=== PATIENT | female | born 1985 | race Caucasian/White ===

== ENCOUNTER 2020-07-30 17:08 | Emergency (ER) | payer MEDICAID ==
[2020-07-30] MEDS ORDERED: Morphine 4 MG/ML VIAL IVPUSH ONE (17:32)
[2020-07-30] MEDS ORDERED: Ondansetron 4 MG/2 ML SDV IVPUSH ONE (17:32)
[2020-07-30] MEDS ORDERED: Sodium Chloride 0.9% 1,000 ML IV SCH (17:45)
--- NOTE | 2020-07-30 17:59 | EDM.PDOC ---
ED HPI GENERAL MEDICAL PROBLEM - General Chief Complaint: General Stated Complaint: POST OP PAIN Time Seen by Provider: 07/30/20 17:30 Source of Information: Reports: Patient History Limitations: Reports: No Limitations - History of Present Illness INITIAL COMMENTS - FREE TEXT/NARRATIVE: Patient is a 35 y/o female who presents with diffuse abdominal pain and nausea/vomiting since Sunday. Dr Canseco ([facility]) did a lap band surgery Sunday and patient hasn't been able to keep anything down ever since. Last bowel movement was before the surgery. Patient denies bloody or dark stools. Patient tried calling surgeon's office, but he will not be back until Sunday. Abdominal Pain Score (Numeric/FACES): 9 - Related Data Allergies Allergy/AdvReac Type Severity Reaction Status Date / Time No Known Allergies Allergy Verified 07/30/20 18:24 Past Medical History HEENT History: Reports: Impaired Vision TEST PILOT History: Reports: Polycystic Ovaries Psychiatric History: Reports: Anxiety, Depression ED ROS GENERAL - Review of Systems Review Of Systems: See Below Constitutional: Reports: No Symptoms HEENT: Reports: No Symptoms Respiratory: Reports: No Symptoms Cardiovascular: Reports: No Symptoms GI/Abdominal: Reports: Abdominal Pain, Nausea, Vomiting : Reports: No Symptoms Musculoskeletal: Reports: No Symptoms Skin: Reports: No Symptoms Neurological: Reports: No Symptoms ED EXAM, GENERAL - Physical Exam Exam: See Below Exam Limited By: No Limitations General Appearance: Alert, Anxious Head: Atraumatic, Normocephalic Respiratory/Chest: No Respiratory Distress, Lungs Clear, Normal Breath Sounds, No Accessory Muscle Use, Chest Non-Tender Cardiovascular: Normal Peripheral Pulses, Regular Rate, Rhythm, No Edema, No Murmur GI/Abdominal: Soft, No Distention, Guarding, Rebound, Tender Course - Vital Signs Text/Narrative:: All labs unremarkable except for leukocytosis. CT ABD/PEL: 1. post gastric banding procedure 2. gastric pouch mildly dilated. hiatal hernia containing gastric pouch 3. small 3.7 x 2.5 cm pocket of fluid and air in the left anterior abdominal wall soft tissues, most likely a small post-op fluid collection 4. no significant acute abnormality Patient able to tolerate fluids after morphine, 1 L NS, and zofran. Last Recorded V/S: Last Vital Signs Temp 36.4 C 07/30/20 17:15 Pulse 98 07/30/20 17:15 Resp 16 07/30/20 17:15 BP 139/81 07/30/20 17:15 Pulse Ox 98 07/30/20 17:15 - Orders/Labs/Meds Orders: Active Orders 24 hr Category Date Time Status Abdomen Pelvis wo Cont [CT] Stat Exams 07/30/20 18:05 Taken UA RFX [place] AND CULT IF INDIC [URIN] Stat Lab 07/30/20 17:31 Ordered Urine [HCG QUALITATIVE,URINE] [URCHEM] Stat Lab 07/30/20 17:32 Ordered Sodium Chloride 0.9% [Normal Saline] 1,000 ml Med 07/30/20 17:45 Active IV ASDIRECTED Medication Orders Sodium Chloride (Normal Saline) 1,000 mls @ 1,000 mls/hr IV ASDIRECTED AIDAN Last Admin: 07/30/20 18:18 Dose: 1,000 mls/hr Documented by: BERNABE Labs: Laboratory Tests 07/30/20 07/30/20 07/30/20 Range/Units 17:40 17:40 17:40 WBC 12.5 H (4.0-11.0) K/uL RBC 5.38 (3.80-5.80) M/uL Hgb 14.5 (11.5-16.5) g/dL Hct 43.8 (37.0-47.0) % MCV 81 (76-96) fL MCH 27.0 (27.0-32.0) pg MCHC 33.1 (31.0-35.0) g/dL RDW 13.5 (11.0-16.0) % Plt Count 268 (150-500) K/uL MPV 10.7 H (6.0-10.0) fL Neut % (Auto) 72.7 H (45.0-70.0) % Lymph % (Auto) 20.4 (20.0-40.0) % [place] % (Auto) 6.5 (3.0-10.0) % Eos % (Auto) 0.2 L (1.0-5.0) % Baso % (Auto) 0.2 (0.0-0.5) % Neut # (Auto) 9.12 H (2.00-7.50) K/uL Lymph # (Auto) 2.55 (1.50-4.00) K/uL [place] # (Auto) 0.81 H (0.20-0.80) K/uL Eos # (Auto) 0.02 L (0.04-0.40) K/uL Baso # (Auto) 0.03 (0.02-0.10) K/uL Sodium 140 (136-145) mmol/L Potassium 3.7 (3.5-5.1) mmol/L Chloride 100 (98-107) mmol/L Carbon Dioxide 25.5 (21.0-32.0) mmol/L Anion Gap 18.2 H (5.0-15.0) mmol/L BUN 15 D (8-26) mg/dL Creatinine 0.92 (0.55-1.02) mg/dL Est Cr Clr Drug Dosing 81.42 mL/min Estimated GFR (MDRD) > 60 (>60) MLS/MIN BUN/Creatinine Ratio 16.3 (6-25) Glucose 128 H (74-100) mg/dL Lactic Acid 1.1 (0.4-2.0) mmol/L Calcium 10.0 (8.5-10.1) mg/dL Total Bilirubin 0.5 (0.0-1.0) mg/dL AST 52 H (15-37) U/L ALT 75 (12-78) U/L Alkaline Phosphatase 91 (46-116) U/L Total Protein 8.9 H (6.4-8.2) g/dL Albumin 3.9 (3.4-5.0) g/dL Globulin 5.0 H (2.2-4.2) g/dL Albumin/Globulin Ratio 0.8 (0.8-2.0) Lipase 113 (73-393) U/L Meds: Medications Generic Name Dose Route Start Last Admin Trade Name Freq PRN Reason Stop Dose Admin Sodium Chloride 1,000 mls @ 1,000 mls/hr 07/30/20 17:45 07/30/20 18:18 Normal Saline IV 1,000 mls/hr ASDIRECTED AIDAN Administration Discontinued Medications Generic Name Dose Route Start Last Admin Trade Name Freq PRN Reason Stop Dose Admin Morphine Sulfate 4 mg 07/30/20 17:32 07/30/20 17:51 Morphine IVPUSH 07/30/20 17:33 4 mg ONETIME ONE Administration Ondansetron HCl 4 mg 07/30/20 17:32 07/30/20 17:51 Zofran IVPUSH 07/30/20 17:33 4 mg ONETIME ONE Administration Departure - Departure Time of Disposition: 19:45 Disposition: Home, Self-Care 01 Condition: Good Clinical Impression: Post-op pain Vomiting Qualifiers: Vomiting type: bilious vomiting Nausea presence: with nausea Qualified Code(s): R11.14 - Bilious vomiting - Discharge Information *PRESCRIPTION DRUG MONITORING PROGRAM REVIEWED*: Not Applicable *COPY OF PRESCRIPTION DRUG MONITORING REPORT IN PATIENT NEELAM: Not Applicable Instructions: Nausea and Vomiting, Adult Forms: ED Department Discharge Additional Instructions: Small sips of water and juice; small bits of bland food; no soda or dairy. Take nausea and pain meds as directed. Follow up as scheduled next sunday with surgery. Return to the ED for fever >102, unable to tolerate fluids, difficulty breathing/swallowing, and/or persistent/worsening symptoms. Sepsis Event Note (ED) - Focused Exam Vital Signs: Vital Signs Temp Pulse Resp BP Pulse Ox 07/30/20 17:15 36.4 C 98 16 139/81 98 - My Orders Last 24 Hours: My Active Orders 07/30/20 17:31 UA RFX [place] AND CULT IF INDIC [URIN] Stat 07/30/20 17:32 Urine [HCG QUALITATIVE,URINE] [URCHEM] Stat 07/30/20 17:45 Sodium Chloride 0.9% [Normal Saline] 1,000 ml IV ASDIRECTED 07/30/20 18:05 Abdomen Pelvis wo Cont [CT] Stat - Assessment/Plan Last 24 Hours: My Active Orders 07/30/20 17:31 UA RFX [place] AND CULT IF INDIC [URIN] Stat 07/30/20 17:32 Urine [HCG QUALITATIVE,URINE] [URCHEM] Stat 07/30/20 17:45 Sodium Chloride 0.9% [Normal Saline] 1,000 ml IV ASDIRECTED 07/30/20 18:05 Abdomen Pelvis wo Cont [CT] Stat Plan: Zofran 4 mg ODT PO every 4-6 hours prn for nausea
[2020-07-30] MEDS ORDERED: Ondansetron 4 MG Tab.DIS ONE (18:25)
--- NOTE | 2020-08-01 12:03 | CT ---
DATE OF SERVICE: 07/30/2020 CLINICAL DATA: Pain Unenhanced abdomen and pelvic CT: Multi slice acquisition through the abdomen and pelvis without IV or oral contrast was performed. No priors. The lung bases are clear. The heart size is normal. There is a moderate size hiatal hernia. The patient is status post gastric banding. The gastric pouch is within the hiatal hernia. There is diffuse fatty infiltration of the liver. No focal hepatic lesions. The gallbladder appears normal. No calcified gallstones. No pericholecystic fluid. The spleen appears normal. The pancreas appears normal. The right and left adrenals appear normal. The right and left kidneys appear normal. No nephrocalcinosis or nephrolithiasis. No hydronephrosis or hydroureter. The bladder is partially fluid filled. It appears normal. There are small low-density lesions in both ovaries consistent with small ovarian cysts. No evidence of appendicitis. No free air. No free fluid. No dilated loops of bowel. No adenopathy. NO aortic aneurysm. There is a small gas and fluid collection within the anterior abdomen wall on the left anterior to the left rectus abdominus muscle adjacent to the gastric band port tube. It measures 3.7 cm in its maximum dimension. It is probably related to the prior surgery. I cannot exclude an infectious process. No other significant findings. MTDD
== END 2020-07-30 20:01 | disposition home or self-care (01) ==
LOC: LB.ED 17:08
DX: G89.18 Other acute postprocedural pain (principal); R11.14 Bilious vomiting
CPT/HCPCS: 36415; 74176; 80053; 83605; 83690; 85025; 96374; 96375; 99284-25; A9270-GY; J2270; J2405; J7030

== ENCOUNTER 2021-01-03 14:25 | Emergency (ER) | payer MEDICAID ==
[2021-01-03] MEDS ORDERED: Orphenadrine 60 MG/2 ML Inj IM ONE (14:53)
[2021-01-03] MEDS ORDERED: Acetaminophen/Codeine 300-30 MG Tab PO ONE (14:54)
[2021-01-03] MEDS ORDERED: Acetaminophen/Codeine 300-30 MG Tab ONE (15:22)
--- NOTE | 2021-01-03 15:37 | EDM.PDOC ---
ED HPI GENERAL MEDICAL PROBLEM - General Chief Complaint: Back Pain or Injury Stated Complaint: BACK PAIN Time Seen by Provider: 01/03/21 14:30 Source of Information: Reports: Patient History Limitations: Reports: No Limitations - History of Present Illness INITIAL COMMENTS - FREE TEXT/NARRATIVE: Ms. Abbasi came in today for low back pain not attributed to any acute injury. ROM is limited in all planes. She is limping and leaning left. Symptoms for 6 days. She initially tried Ibuprofen 3 days ago with no improvement. Pain is 8/10. She has a PMH of lap band surgery 14 years ago. No chronic illnesses noted. Normal HRR, lungs are CTA, Abd is soft and non tender. No fever. No N, V, or D. Onset: Gradual Onset Date: 12/29/20 Duration: Day(s):, Constant Location: Reports: Back Quality: Reports: Ache, Dull Severity: Moderate Improves with: Reports: None Worsens with: Reports: None Context: Reports: Lifting Associated Symptoms: Reports: No Other Symptoms Treatments BACK OFFICE MEDICAL ASSISTANT: Reports: Acetaminophen Bilateral Lower Back Pain Score (Numeric/FACES): 8 - Related Data Allergies Allergy/AdvReac Type Severity Reaction Status Date / Time No Known Allergies Allergy Verified 01/03/21 14:43 Home Meds: Home Meds NK [No Known Home Meds] 01/03/21 [History] Past Medical History HEENT History: Reports: Impaired Vision Gastrointestinal History: Reports: Other (See Below) Other Gastrointestinal History: Lactose Intolerant Genitourinary History: Reports: Other (See Below) Other Genitourinary History: Pre-diabetic 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: 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 BED ASSEMBLER History: Insulin Resistant Polycystic Ovarian Syndrome Psychiatric History: Reports: Anxiety, Depression Endocrine/Metabolic History: Reports: Other (See Below) Other Endocrine/Metabolic History: Prediabetic - Past Surgical History GI Surgical History: Reports: Bariatric Procedure Social & Family History - Caffeine Use Caffeine Use: Reports: Coffee, Soda - Recreational Drug Use Recreational Drug Use: No ED ROS GENERAL - Review of Systems Review Of Systems: See Below Musculoskeletal: Reports: Back Pain, Muscle Stiffness ED EXAM,LOWER BACK PAIN/INJURY - Physical Exam Exam: See Below Exam Limited By: No Limitations General Appearance: Alert, WD/WN, Mild Distress Eye Exam: Bilateral Eye: PERRL Ears: Normal External Exam Nose: Normal Inspection, Normal Mucosa Throat/Mouth: Normal Inspection, Normal Lips, Normal Oropharynx, Other (poor dentition) Head: Atraumatic, Normocephalic Neck: Normal Inspection, Supple, Non-Tender, Full Range of Motion Respiratory/Chest: No Respiratory Distress, Lungs Clear, Normal Breath Sounds Cardiovascular: Normal Peripheral Pulses, Regular Rate, Rhythm, No Edema GI/Abdominal: Normal Bowel Sounds, Soft, Non-Tender (Female) Exam: Deferred Rectal (Female) Exam: Deferred Back Exam: Decreased Range of Motion, Muscle Spasm Extremities: Normal Inspection, Normal Range of Motion Neurological: Alert, Normal Mood/Affect, CN II-XII Intact, Difficulty Walking (antalgic gait) Psychiatric: Normal Affect, Normal Mood Skin Exam: Warm, Dry, Intact, Normal Color, No Rash Lymphatic: No Adenopathy Course - Vital Signs Last Recorded V/S: Last Vital Signs Temp 37.0 C 01/03/21 14:38 Pulse 81 01/03/21 14:38 Resp 18 01/03/21 14:38 BP 137/98 H 01/03/21 14:38 Pulse Ox 97 01/03/21 14:38 - Orders/Labs/Meds Orders: Active Orders 24 hr Category Date Time Status Lumbar Spine wo Cont [CT] Stat Exams 01/03/21 14:43 Taken Meds: Medications Discontinued Medications Generic Name Dose Route Start Last Admin Trade Name Rebecca PRN Reason Stop Dose Admin Acetaminophen/Codeine Phosphate 1 tab 01/03/21 14:54 01/03/21 15:13 Acetaminophen/Codeine 300-30 Mg Tab PO 01/03/21 14:55 1 tab ONETIME ONE Administration Acetaminophen/Codeine Phosphate Confirm 01/03/21 15:22 01/03/21 15:14 Acetaminophen/Codeine 300-30 Mg Tab Administered 01/03/21 15:23 Not Given Dose 1 tab .ROUTE .STK-MED ONE Orphenadrine Citrate 60 mg 01/03/21 14:53 01/03/21 15:18 Orphenadrine 60 Mg/2 Ml Inj IM 01/03/21 14:54 60 mg ONETIME ONE Administration Departure - Departure Time of Disposition: 15:50 Disposition: Home, Self-Care 01 Condition: Good Clinical Impression: Lumbar back pain, Protrusion of intervertebral disc of lumbosacral region Lumbar strain Qualifiers: Encounter type: initial encounter Qualified Code(s): S39.012A - Strain of muscle, fascia and tendon of lower back, initial encounter - Discharge Information *PRESCRIPTION DRUG MONITORING PROGRAM REVIEWED*: Not Applicable *COPY OF PRESCRIPTION DRUG MONITORING REPORT IN PATIENT NEELAM: Not Applicable Instructions: Lumbosacral Strain, Acute Back Pain, Adult, Chronic Back Pain, Back Injury Prevention Referrals: Hamilton Estevez MD [Primary Care Provider] - Additional Instructions: Use prescribed medications as needed. Take OTC Tylenol and Ibuprofen as needed. Use heating pad. Topical pain remedies, Biofreeze, Voltaren gel, Lidocaine patch. Follow up with PCP for referral to ortho spine consult. Return to ED for new and or worsening symptoms. Use back brace for lifting. Sepsis Event Note (ED) - Evaluation Sepsis Screening Result: No Definite Risk - Focused Exam Vital Signs: Vital Signs Temp Pulse Resp BP Pulse Ox 01/03/21 14:38 37.0 C 81 18 137/98 H 97 - Problem List & Annotations (1) Protrusion of intervertebral disc of lumbosacral region SNOMED Code(s): 22652386 Code(s): M51.27 - OTHER INTERVERTEBRAL DISC DISPLACEMENT, LUMBOSACRAL REGION Status: Acute Priority: Medium (2) Lumbar strain SNOMED Code(s): 317224386 Code(s): S39.012A - STRAIN OF MUSCLE, FASCIA AND TENDON OF LOWER BACK, INIT Status: Acute Priority: Medium Qualifiers: Encounter type: initial encounter Qualified Code(s): S39.012A - Strain of muscle, fascia and tendon of lower back, initial encounter (3) Lumbar back pain SNOMED Code(s): 797039450 Code(s): M54.5 - LOW BACK PAIN Status: Acute - Problem List Review Problem List Initiated/Reviewed/Updated: Yes - My Orders Last 24 Hours: My Active Orders 01/03/21 14:43 Lumbar Spine wo Cont [CT] Stat - Assessment/Plan Last 24 Hours: My Active Orders 01/03/21 14:43 Lumbar Spine wo Cont [CT] Stat Assessment:: L4-L5 disk protrusion, acute lumbar strain. Plan: Use prescribed medications as needed. Take OTC Tylenol and Ibuprofen as needed. Use heating pad. Topical pain remedies, Biofreeze, Voltaren gel, Lidocaine patch. Follow up with PCP for referral to ortho spine consult. Return to ED for new and or worsening symptoms.
--- NOTE | 2021-01-03 15:42 | CT ---
DATE OF SERVICE: 01/03/2021 CLINICAL DATA: LOW BACK PAIN AND LIMP Lumbar spine CT: Multi slice axial acquisition from T12-S3 was performed. Axial images and sagittal coronal reformations are reviewed. The vertebral bodies are of average height and in good alignment. No acute fracture or dislocation. No lytic or blastic bone lesions. There is annular bulging of the L4-L5 disc with a small calcified disc protrusion that central and paramedian on the left. It does produce mild effacement of the dural sac. No significant central or foraminal stenosis. There is mild annular bulging of the L5-S1 disc. There is mild neural foramen stenosis bilaterally. No other significant findings. The soft tissues are unremarkable. MTDD
== END 2021-01-03 15:41 | disposition home or self-care (01) ==
LOC: LB.ED 14:25
DX: S39.012A Strain of muscle, fascia and tendon of lower back, initial encounter (principal); M51.27 Other intervertebral disc displacement, lumbosacral region; X58.XXXA Exposure to other specified factors, initial encounter
CPT/HCPCS: 72131; 96372; 99283-25; A9270-GY; J2360

== ENCOUNTER 2022-07-05 20:15 | Emergency (ER) | payer MEDICAID | END 2022-07-05 21:58 | disposition home or self-care (01) | LOC: LB.ED 20:15 | DX: R19.01 Right upper quadrant abdominal swelling, mass and lump (principal) | CPT/HCPCS: 99283 ==

== ENCOUNTER 2024-12-28 15:19 | Emergency (ER) | payer MEDICAID ==
[2024-12-28] MEDS ORDERED: Amoxicillin 500 MG Cap ONE (15:45)
== END 2024-12-28 15:51 | disposition home or self-care (01) ==
LOC: LB.ED 15:19
DX: N94.89 Other specified conditions associated with female genital organs and menstrual cycle (principal); I10 Essential (primary) hypertension; E78.00 Pure hypercholesterolemia, unspecified; E11.9 Type 2 diabetes mellitus without complications; Z79.899 Other long term (current) drug therapy; Z79.84 Long term (current) use of oral hypoglycemic drugs; Z79.85 Long-term (current) use of injectable non-insulin antidiabetic drugs
CPT/HCPCS: 99282; 99283; A9270-GY